=== PATIENT | male | born 1955 | race Caucasian/White ===

== ENCOUNTER 2019-06-06 23:32 | Inpatient (IN) | payer MEDICARE, BC ==
[~2019-06-06] VITALS: Ht 177.8 cm; Wt 79.0 kg
--- NOTE | 2019-06-06 23:40 | NUR ---
Heparin gtt continued at 1200u/hr (12mls/hr) Per PTT of 40 at previous facility
[2019-06-07] MEDS ORDERED: mag hydrox/Alum hydrox/simeth 30ml oral suspension PO PRN (00:30)
[2019-06-07] MEDS ORDERED: potassium Cl 20 mEq SR tablet PO PRN ×2 (00:30)
[2019-06-07] MEDS ORDERED: HYDROcodone/acetaminophen 5mg/325mg tablet PO PRN (00:30)
[2019-06-07] MEDS ORDERED: magnesium 2GM in 50ml NS 50 ML IV PRN (00:30)
[2019-06-07] MEDS ORDERED: morphine 2 MG/ML inj. syringe IV PRN ×2 (00:30)
[2019-06-07] MEDS ORDERED: magnesium 4gm in 100ml NS 100 ML IV PRN (00:30)
[2019-06-07] MEDS ORDERED: ondansetron/PF 4mg/2ml inj IV PRN (00:30)
[2019-06-07] MEDS ORDERED: acetaminophen 325mg tablet PO PRN ×2 (00:30→02:30)
[2019-06-07] MEDS ORDERED: potassium CL 10mEq/100ml bag 100 ML IV PRN ×2 (00:30)
[2019-06-07] MEDS ORDERED: magnesium hydroxide 30ml (MOM) UD suspension PO PRN (00:30)
[2019-06-07] MEDS ORDERED: magnesium Cl slow-release 64mg tablet PO PRN (00:30)
[2019-06-07] MEDS ORDERED: heparin 10,000 units/1 ML INJ IV PRN (00:30)
[2019-06-07] MEDS ORDERED: heparin 10,000 units/1 ML INJ IV ONE (00:30)
[2019-06-07 00:48] LABS: RED BLOOD COUNT 4.63 X10'6 (4.70-6.10); RED CELL DISTRIBUTION WIDTH 13.7 % (11.5-14.5)
[2019-06-07 00:50] LABS: BASOPHILS % (AUTO) 0.6 % (0-1); EOSINOPHILS # (AUTO) 0.1 X10'3 (0-0.9); EOSINOPHILS % (AUTO) 1.1 % (0-6); HEMATOCRIT 43.1 % (42.0-52.0); HEMOGLOBIN 14.7 g/dl (14.0-17.9); LYMPHOCYTES # (AUTO) 1.3 X10'3 (1.1-4.8); LYMPHOCYTES % (AUTO) 16.5 % (21-51); MEAN CORPUSCULAR HEMOGLOBIN 31.8 PG (27.0-31.0); MEAN CORPUSCULAR HGB CONC 34.2 g/dL (33.0-36.5); MEAN CORPUSCULAR VOLUME 93.1 FL (78-98); MEAN PLATELET VOLUME 9.3 FL (7.4-10.4); MONOCYTES # (AUTO) 0.6 X10'3 (0-0.9); MONOCYTES % (AUTO) 8.1 % (2-12); NEUTROPHILS # (AUTO) 5.6 X10'3 (1.8-7.7); NEUTROPHILS % (AUTO) 73.7 % (42-75); PLATELET COUNT 106 X10'3 (140-440); WHITE BLOOD COUNT 7.6 X10'3 (4.5-11.0)
[2019-06-07 00:55] LABS: ALANINE AMINOTRANSFERASE 40 U/L (12-78); ALBUMIN 3.6 G/DL (3.4-5.0); ALBUMIN/GLOBULIN RATIO 1.1 (1.1-1.5); ALKALINE PHOSPHATASE 72 IU/L (46-116); ANION GAP 11 (8-16); ASPARTATE AMINO TRANSFERASE 22 U/L (10-37); BILIRUBIN,TOTAL 0.7 MG/DL (0.1-1.0); BLOOD UREA NITROGEN 12 MG/DL (7-18); BUN/CREATININE RATIO 14.5 (5.4-32.0); CALCIUM 8.5 MG/DL (8.5-10.1); CHLORIDE 106 MMOL/L (99-107); CREATININE 0.83 MG/DL (0.60-1.10); GLUCOSE 88 MG/DL (70-104); POTASSIUM 3.8 MMOL/L (3.5-5.1); SODIUM 142 MMOL/L (135-145); TOTAL CARBON DIOXIDE 24.6 MMOL/L (24-32); TOTAL PROTEIN 6.9 G/DL (6.4-8.2); eGFR > 90 ML/MIN
[2019-06-07 01:10] VITALS: BP 123/72
--- NOTE | 2019-06-07 01:13 | NUR ---
Patient in room PCU 3020. I have received report from Nadir RIOS and had the opportunity to ask questions and assume patient care.
[2019-06-07 01:25] LABS: PARTIAL THROMBOPLASTIN TIME 104 SECONDS (22-32)
[2019-06-07 02:00] VITALS: BP 128/76
[2019-06-07] MEDS: heparin 25,000 UNIT/250ml bag 250 ML IV SCH ×2 (02:02→07:35)
--- NOTE | 2019-06-07 04:27 | NUR ---
The emar stated the heparin drip should have been started at 1300u/hr. the patient was received on pcu with the heparin drip @1200. followed protocol from there.
--- NOTE | 2019-06-07 06:00 | NUR ---
Patient in room PCU 3020. I have received report from Kalpesh and had the opportunity to ask questions and assume patient care.
--- NOTE | 2019-06-07 06:28 | NUR ---
Problems reprioritized. Patient report given, questions answered & plan of care reviewed with Altagracia RIOS.
[2019-06-07 07:00] VITALS: BP 124/79
[2019-06-07] MEDS ORDERED: K and/or MAG REPLACEMENT MC SCH (08:00)
[2019-06-07] MEDS ORDERED: APIX5TAB3 PO (09:17)
[2019-06-07] MEDS ORDERED: FLU VACC QS2019-20(6MOS UP)/PF 60 MCG/0.5 ML SYRINGE IMVAC ONE (10:00)
[2019-06-07] MEDS ORDERED: pneumococcal 23-VAL P-sac vacc 25 mcg/0.5ml vial IMVAC ONE (10:30)
[2019-06-07] MEDS ORDERED: apixaban 5mg tablet PO SCH (10:30)
[2019-06-07] MEDS ORDERED: potassium Cl 20 mEq SR tablet PO STA ×2 (10:50→11:08)
[2019-06-07 11:00] VITALS: BP 129/82
--- NOTE | 2019-06-07 13:10 | NUR ---
Patient has been cleared to discharge home. Troponins negative, results of echo are insignificant. Patient is not in any respiratory distress and denies any pain. Heparin and DC'd and eliquis was started per MD order. Patient was sent with a prescription for Eliquis and card for a free 30 day supply. Patient was educated to f/u with primary in 1 week. Patients spouse scheduled his appointment at bedside. S/s/sx reviewed with patient and he verbalized understanding. MD at bedside and explained discharge instructions as well. Tele removed. Patient left in stable condition.
== END 2019-06-07 11:40 | disposition home or self-care (01) | DRG 299 ==
LOC: ER 23:33 → ED HOLD 06-07 00:47 → EDBEDREQ 06-07 00:50 → PCU 3S 06-07 01:06
PROVIDERS: ADMIT Hospitalist; ATTEND Internal Medicine
PROC: 3E0234Z Introduction of Serum, Toxoid and Vaccine into Muscle, Percutaneous Approach (ICD-10-PCS; principal; 2019-06-07)
PROC: 3E02340 Introduction of Influenza Vaccine into Muscle, Percutaneous Approach (ICD-10-PCS; 2019-06-07)
DX: I82.402 Acute embolism and thrombosis of unspecified deep veins of left lower extremity (principal); I26.92 Saddle embolus of pulmonary artery without acute cor pulmonale; Z96.641 Presence of right artificial hip joint; Z79.01 Long term (current) use of anticoagulants; Z23 Encounter for immunization
CPT/HCPCS: 36415; 80053; 84484; 85025; 85610; 85730; 87081; 93005; 93306; 99285; G0378; J1644